=== PATIENT | male | born 1975 | race Caucasian/White ===

== ENCOUNTER → 2017-03-02 16:53 | Emergency (ER) | payer OTHER ==
[~2017-03-02 16:53] MED LIST: Aspirin Low Dose CHEW TAB* 81 MG PO ONE; Ibuprofen TAB* 600 MG PO ONE
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
[2017-03-02 18:11] LABS: Hematocrit 45 % (42-52); Hemoglobin 15.5 g/dl (14.0-18.0); Mean Corpuscular HGB Conc 34 g/dl (31-36); Mean Corpuscular Hemoglobin 33 pg (27-31); Mean Corpuscular Volume 95 fL (80-94); Mean Platelet Volume 8 um3 (7.4-10.4); Red Blood Count 4.77 10^6/ul (4.0-5.4); Red Cell Distribution Width 13 % (10.5-15); White Blood Count 9.6 10^3/ul (3.5-10.8)
[2017-03-02 18:27] LABS: Albumin 3.9 g/dL (3.2-5.2); BUN/Creatinine Ratio 10.9 (8-20); Calcium 9.3 mg/dL (8.6-10.3); EGFR African American 86.2 (>60); Globulin 2.6 g/dL (2-4); Magnesium 2.1 mg/dL (1.9-2.7); Potassium 4.1 mmol/L (3.5-5.0); Total Bilirubin 0.7 mg/dL (0.2-1.0); Total Protein 6.5 g/dL (6.4-8.9)
[2017-03-02 19:01] LABS: TSH (Thyroid Stimulating Horm) 0.66 mcIU/mL (0.34-5.60)
--- NOTE | 2017-03-02 21:49 | ED ---
Frank Fernando Benjamin, scribed for Sampson Helton MD on 03/02/17 at 2129 . HPI Chest Pain - HPI Summary HPI Summary: 41yo male presents to ED c/o left anterior chest pain that started 3-4 days ago. Pain is constant and radiates to the back. Pain is at 5/10, with 7/10 at its worse. Deep breathing, coughing, and pushing the left chest makes the pain worse. Pt also states that he has some mild difficulty breathing. Denies N/V, or abdominal pain. Pt is a smoker. No prior CAD hx. FHx of CAD before 55. - History of Current Complaint Chief Complaint: EDChestPainROMI Time Seen by Provider: 03/02/17 21:21 Hx Obtained From: Patient Onset/Duration: Started Days Ago - 3-4 days, Still Present Timing: Constant Initial Severity: Moderate Current Severity: Moderate Pain Intensity: 6 Pain Scale Used: 0-10 Numeric Chest Pain Location: Left Anterior Chest Pain Radiates: Yes Chest Pain Radiates To:: Back Aggravating Factor(s): Deep Breaths, Other: - coughing, pushing Alleviating Factor(s): Nothing Associated Signs and Symptoms: Positive: Chest Pain, Shortness of Breath, Back Pain. Negative: Nausea, Abdominal Pain, Vomiting - Allergy/Home Medications Allergies/Adverse Reactions: Allergies Allergy/AdvReac Type Severity Reaction Status Date / Time No Known Allergies Allergy Verified 05/29/13 07:59 PMH/Surg Hx/FS Hx/Imm Hx Respiratory History: Reports: Other Respiratory Problems/Disorders - SMOKER Musculoskeletal History: Reports: Hx Arthritis - RIGHT ANKLE, Other Musculoskeletal History - 05/10/2012 FRACTURE THORACIC-HEALING Sensory History: Denies: Hx Contacts or Glasses, Hx Hearing Aid Opthamlomology History: Denies: Hx Contacts or Glasses - Surgical History Surgery Procedure, Year, and Place: RIGHT ANKLE [id number] Hx Anesthesia Reactions: No Infectious Disease History: No Infectious Disease History: Denies: Traveled Outside the [place] in Last 30 Days - Family History Known Family History: Positive: Hypertension - Social History Substance Use Type: Reports: Marijuana Review of Systems Constitutional: Negative Eyes: Negative ENT: Negative Positive: Chest Pain Positive: Shortness Of Breath Gastrointestinal: Negative Genitourinary: Negative Musculoskeletal: Negative Skin: Negative Neurological: Negative Psychological: Normal All Other Systems Reviewed And Are Negative: Yes Physical Exam Triage Information Reviewed: Yes Vital Signs On Initial Exam: Initial Vitals Temp Pulse Resp BP Pulse Ox 98.1 F 67 20 163/92 98 03/02/17 17:23 03/02/17 17:23 03/02/17 17:23 03/02/17 17:23 03/02/17 17:23 Vital Signs Reviewed: Yes Appearance: Positive: Well-Appearing, No Pain Distress, Well-Nourished Skin: Positive: Warm, Skin Color Reflects Adequate Perfusion, Dry Head/Face: Positive: Normal Head/Face Inspection Eyes: Positive: EOMI, PAULY ENT: Positive: Normal ENT inspection Neck: Positive: Supple, Nontender Respiratory/Lung Sounds: Positive: Clear to Auscultation, Breath Sounds Present Cardiovascular: Positive: RRR, Pulses are Symmetrical in both Upper and Lower Extremities, Other - reproducible left sternal chest wall pain Abdomen Description: Positive: Nontender, Soft Bowel Sounds: Positive: Present Musculoskeletal: Positive: Strength/ROM Intact Neurological: Positive: Sensory/Motor Intact, Alert, Oriented to Person Place, Time Psychiatric: Positive: Affect/Mood Appropriate Diagnostics - Vital Signs Vital Signs Temp Pulse Resp BP Pulse Ox 03/02/17 19:20 98.5 F 58 16 159/95 99 03/02/17 17:23 98.1 F 67 20 163/92 98 - Laboratory Lab Results: Lab Results 03/02/17 03/02/17 03/02/17 Range/Units 17:58 17:58 17:58 WBC 9.6 (3.5-10.8) 10^3/ul RBC 4.77 (4.0-5.4) 10^6/ul Hgb 15.5 (14.0-18.0) g/dl Hct 45 (42-52) % MCV 95 H (80-94) fL MCH 33 H (27-31) pg MCHC 34 (31-36) g/dl RDW 13 (10.5-15) % Plt Count 252 (150-450) 10^3/ul MPV 8 (7.4-10.4) um3 Neut % (Auto) 70.0 (38-83) % Lymph % (Auto) 18.0 L (25-47) % Jay % (Auto) 7.2 (1-9) % Eos % (Auto) 3.5 (0-6) % Baso % (Auto) 1.3 (0-2) % Absolute Neuts (auto) 6.7 (1.5-7.7) 10^3/ul Absolute Lymphs (auto) 1.7 (1.0-4.8) 10^3/ul Absolute Monos (auto) 0.7 (0-0.8) 10^3/ul Absolute Eos (auto) 0.3 (0-0.6) 10^3/ul Absolute Basos (auto) 0.1 (0-0.2) 10^3/ul Absolute Nucleated RBC 0.01 10^3/ul Nucleated RBC % 0.1 INR (Anticoag Therapy) (0.89-1.11) D-Dimer, Quantitative (Less Than 230) ng/mL Sodium 141 (133-145) mmol/L Potassium 4.1 (3.5-5.0) mmol/L Chloride 109 (101-111) mmol/L Carbon Dioxide 28 (22-32) mmol/L Anion Gap 4 (2-11) mmol/L BUN 13 (6-24) mg/dL Creatinine 1.19 H (0.67-1.17) mg/dL Est GFR ( Amer) 86.2 (>60) Est GFR (Non-Af Amer) 67.0 (>60) BUN/Creatinine Ratio 10.9 (8-20) Glucose 95 (70-100) mg/dL Lactic Acid (0.5-2.0) mmol/L Calcium 9.3 (8.6-10.3) mg/dL Magnesium 2.1 (1.9-2.7) mg/dL Total Bilirubin 0.70 (0.2-1.0) mg/dL AST 12 L (13-39) U/L ALT 17 (7-52) U/L Alkaline Phosphatase 73 (34-104) U/L Total Creatine Kinase 106 (10-223) U/L CK-MB (CK-2) 0.7 (0.6-6.3) ng/mL Myoglobin 17.8 (17.4-105.7) ng/mL Troponin I 0.00 (<0.04) ng/mL B-Natriuretic Peptide 37 ( - 100) pg/mL Total Protein 6.5 (6.4-8.9) g/dL Albumin 3.9 (3.2-5.2) g/dL Globulin 2.6 (2-4) g/dL Albumin/Globulin Ratio 1.5 (1-3) TSH 0.66 (0.34-5.60) mcIU/mL 03/02/17 03/02/17 Range/Units 17:58 17:58 WBC (3.5-10.8) 10^3/ul RBC (4.0-5.4) 10^6/ul Hgb (14.0-18.0) g/dl Hct (42-52) % MCV (80-94) fL MCH (27-31) pg MCHC (31-36) g/dl RDW (10.5-15) % Plt Count (150-450) 10^3/ul MPV (7.4-10.4) um3 Neut % (Auto) (38-83) % Lymph % (Auto) (25-47) % Jay % (Auto) (1-9) % Eos % (Auto) (0-6) % Baso % (Auto) (0-2) % Absolute Neuts (auto) (1.5-7.7) 10^3/ul Absolute Lymphs (auto) (1.0-4.8) 10^3/ul Absolute Monos (auto) (0-0.8) 10^3/ul Absolute Eos (auto) (0-0.6) 10^3/ul Absolute Basos (auto) (0-0.2) 10^3/ul Absolute Nucleated RBC 10^3/ul Nucleated RBC % INR (Anticoag Therapy) 0.90 (0.89-1.11) D-Dimer, Quantitative < 200 (Less Than 230) ng/mL Sodium (133-145) mmol/L Potassium (3.5-5.0) mmol/L Chloride (101-111) mmol/L Carbon Dioxide (22-32) mmol/L Anion Gap (2-11) mmol/L BUN (6-24) mg/dL Creatinine (0.67-1.17) mg/dL Est GFR ( Amer) (>60) Est GFR (Non-Af Amer) (>60) BUN/Creatinine Ratio (8-20) Glucose (70-100) mg/dL Lactic Acid 1.0 (0.5-2.0) mmol/L Calcium (8.6-10.3) mg/dL Magnesium (1.9-2.7) mg/dL Total Bilirubin (0.2-1.0) mg/dL AST (13-39) U/L ALT (7-52) U/L Alkaline Phosphatase (34-104) U/L Total Creatine Kinase (10-223) U/L CK-MB (CK-2) (0.6-6.3) ng/mL Myoglobin (17.4-105.7) ng/mL Troponin I (<0.04) ng/mL B-Natriuretic Peptide ( - 100) pg/mL Total Protein (6.4-8.9) g/dL Albumin (3.2-5.2) g/dL Globulin (2-4) g/dL Albumin/Globulin Ratio (1-3) TSH (0.34-5.60) mcIU/mL Result Diagrams: 03/02/17 17:58 03/02/17 17:58 Lab Statement: Any lab studies that have been ordered have been reviewed, and results considered in the medical decision making process. - Radiology CXR Xray Interpretation: No Acute Changes Radiology Interpretation Completed By: ED Physician - ED physician has reviewed this radiology report and agrees. - EKG 1729 Cardiac Rate: NL - 70bpm EKG Rhythm: Sinus Rhythm ST Segment: Normal Ectopy: None Re-Evaluation - Re-Evaluation First Eval Re-Evaluation Time: 21:36 Comment: Reviewed labs and imaging results. Chest Pain Course/Dx - Course Course Of Treatment: Reviewed pts medication and allergy lists. High blood pressure noted. DISCUSSED RESULTS WITH PATIENT/FRIENDS. PAIN IS REPRODUCIBLE TO PALPATION. 4-5 DAYS OF PAIN; TROP AND DDIMER, CXR NL. DISCUSSED ADMISSION VERSES F/U WITH PMD. AT THIS TIME, PT WILL F/U WITH PMD, TAKE IBUPROFEN PRN; RETURN IF WORSE. - Diagnoses Provider Diagnoses: Chest pain Discharge - Discharge Plan Condition: Stable Disposition: HOME Patient Education Materials: Chest Pain (ED) Referrals: Kierra Demarco MD [Primary Care Provider] - Additional Instructions: FOLLOW UP WITH YOUR DOCTOR. CALL TOMORROW, 03/03/17, FOR AN APPOINTMENT. TAKE IBUPROFEN 600MG EVERY 6 HOURS NEEDED. RETURN TO THE EMERGENCY DEPARTMENT FOR ANY WORSENING OF YOUR CONDITION; PAIN, SHORTNESS OF BREATH, YOU FEEL ILL, YOU FEEL LIKE YOU ARE GOING TO PASS OUT OR QUESTIONS OR CONCERNS. The documentation as recorded by the Frank means Benjamin accurately reflects the service I personally performed and the decisions made by me, Sampson Helton MD.
[2017-03-02 22:30] VITALS: BP 156/100
== END | disposition home or self-care (01) ==
LOC: ED 16:53
DX: R07.9 Chest pain, unspecified (principal); R06.02 Shortness of breath; M54.9 Dorsalgia, unspecified; F17.210 Nicotine dependence, cigarettes, uncomplicated
CPT/HCPCS: 36415; 71010; 80053; 82550; 82553; 83605; 83735; 83874; 83880; 84443; 84484; 85025; 85379; 85610; 93005; 99283; A9270-GY

== ENCOUNTER 2018-01-01 10:46 | Emergency (ER) | payer SELFPAY ==
[2018-01-01] MEDS ORDERED: Ketorolac INJ* 30 MG/ML 1 ML VIAL IM ONE (14:04)
[2018-01-01] MEDS ORDERED: LORazepam TAB(*) 1 MG PO ONE (14:04)
--- NOTE | 2018-01-01 14:15 | ED ---
Abdominal Pain/Male - HPI Summary HPI Summary: This is scribe Memo Gurpreet documenting for attending Florencio Lloyd MD. A 42 y/o male presents to ED c/o right back pain reaching 8/10 in severity. As per triage, "Pt c/o R back pain from shoulder radiating to buttock for approx 1 week". According to the patient, this morning it was difficult to walk because of the severe sharp back pain he experienced after coughing. He noted that this pain has been present for the past week coupled with the cough, however, he comes to the [facility] ED today because the pain has worsened to the point where he cannot ambulate. He stated that he can barely move as it hurts to move and even talk. Pt denies any leg pain and nausea, however, he does have wheezing. He noted that he feels like his lungs are filling up (difficulty breathing, SOB) and he is wheezing (normally only during sleep). He initially thought the pain was a pulled muscle and he had his girlfriend rub it out, but since it has been getting worse. The patient attempted to sit up for the MD, but could not due to the severe pain. PMHx of broken back (long time ago). No major surgeries. Patient took no pain medications today or yesterday, but he took 10 mg of Oxycodone ("pink pill") the day before, but it did not alleviate symptoms. I, Dr. Florencio Lloyd, personally performed the services described in this documentation as scribed in my presence and it is both accurate and complete. - History of Current Complaint Chief Complaint: EDFlankPain Stated Complaint: FLANK/BACK PAIN Time Seen by Provider: 01/01/18 13:41 Hx Obtained From: Patient Onset/Duration: Sudden Onset, Lasting Weeks - 1 week., Still Present, Worse Since Timing: Constant Severity Initially: Severe Severity Currently: Severe Pain Intensity: 8 Pain Scale Used: 0-10 Numeric Location: Other - Right back. Radiates: Yes Radiates to: Back, Other - Buttock and shoulder (as per triage). Character: Sharp Aggravating Factor(s): Other: - Cough Alleviating Factor(s): Nothing Associated Signs And Symptoms: Positive: Cough, Back Pain. Negative: Nausea - Allergies/Home Medications Allergies/Adverse Reactions: Allergies Allergy/AdvReac Type Severity Reaction Status Date / Time No Known Allergies Allergy Verified 01/01/18 11:05 PMH/Surg Hx/FS Hx/Imm Hx Respiratory History: Reports: Other Respiratory Problems/Disorders - SMOKER Musculoskeletal History: Reports: Hx Arthritis - RIGHT ANKLE, Other Musculoskeletal History - 05/10/2012 FRACTURE THORACIC-HEALING Sensory History: Denies: Hx Contacts or Glasses, Hx Hearing Aid Opthamlomology History: Denies: Hx Contacts or Glasses - Surgical History Surgery Procedure, Year, and Place: RIGHT ANKLE [id number]/13 Hx Anesthesia Reactions: No Infectious Disease History: No Infectious Disease History: Denies: Traveled Outside the [place] in Last 30 Days - Family History Known Family History: Positive: Hypertension - Social History Alcohol Use: Occasionally Substance Use Type: Reports: Marijuana Smoking Status (MU): Heavy Every Day Tobacco Smoker Review of Systems Negative: Fever Positive: Shortness Of Breath, Cough Negative: Nausea Positive: Other - POSITIVE: Right back pain; NEGATIVE: Leg pain All Other Systems Reviewed And Are Negative: Yes Physical Exam - Summary Physical Exam Summary: Appearance: The patient is well-nourished in no acute distress and in no acute pain. Skin: The skin is warm and dry and skin color reflects adequate perfusion. HEENT: The head is normocephalic and atraumatic. The pupils are equal and reactive. The conjunctivae are clear and without drainage. Nares are patent and without drainage. Mouth reveals moist mucous membranes and the throat is without erythema and exudate. The external ears are intact. The ear canals are patent and without drainage. The tympanic membranes are intact. Neck: The neck is supple with full range of motion and non-tender. There are no carotid bruits. There is no neck vein distension. Respiratory: Chest is non-tender. Lungs are clear to auscultation and breath sounds are symmetrical and equal. Cardiovascular: Heart is regular rate and rhythm. There is no murmur or rub auscultated. There is no peripheral edema and pulses are symmetrical and equal. Abdomen: The abdomen is soft and non-tender. There are normal bowel sounds heard in all four quadrants and there is no organomegaly palpated. Musculoskeletal: There is good capillary refill. There is no peripheral edema or calf tenderness elicited. Tenderness in the paralumbar area. Neurological: Patient is alert and oriented to person, place and time. The patient has symmetrical motor strength in all four extremities. Cranial nerves are grossly intact. Deep tendon reflexes are symmetrical and equal in all four extremities. Psychiatric: The patient has an appropriate affect and does not exhibit any anxiety or depression. Triage Information Reviewed: Yes Vital Signs On Initial Exam: Initial Vitals Temp Pulse Resp BP Pulse Ox 98.5 F 61 14 154/93 100 01/01/18 11:02 01/01/18 11:02 01/01/18 11:02 01/01/18 11:02 01/01/18 11:02 Vital Signs Reviewed: Yes Diagnostics - Vital Signs Vital Signs Temp Pulse Resp BP Pulse Ox 01/01/18 12:40 97.7 F 51 16 158/89 98 01/01/18 11:02 98.5 F 61 14 154/93 100 - Laboratory Lab Statement: Any lab studies that have been ordered have been reviewed, and results considered in the medical decision making process. - Radiology CXR Radiology Interpretation Completed By: Radiologist - NO EVIDENCE FOR ACTIVE CARDIOPULMONARY DISEASE. ED physician reviewed this radiology report. Re-Evaluation - Re-Evaluation First Eval Re-Evaluation Time: 17:26 Change: Improved Comment: Patient is feeling slightly better. Abdominal Pain Fem Course/Dx - Course Course Of Treatment: This seems like a musculoskeletal pain to me and possibly radicular pain. I recommended a short course of pain medication and follow-up if not resolving. He did improve here with Ativan as a muscle relaxer and ketorolac as anti-inflammatory. - Diagnoses Provider Diagnoses: Muscle strain Discharge - Sign-Out/Discharge Documenting (check all that apply): Patient Departure - DISCHARGE - Discharge Plan Condition: Stable Disposition: HOME Prescriptions: oxyCODONE/Acetamin 5/325 MG* [Percocet 5/325 TAB*] 1 tab PO Q6H PRN #20 tab MDD 4 PRN Reason: Pain Patient Education Materials: Muscle Strain (ED), Back Pain (ED) Referrals: Kierra Demarco MD [Primary Care Provider] - 3 Days Additional Instructions: FOLLOW UP WITH PRIMARY CARE PHYSICIAN IN 2-3 DAYS. RETURN TO ED FOR ANY NEW OR WORSENING SYMPTOMS. - Billing Disposition and Condition Condition: STABLE Disposition: Home
--- NOTE | 2018-01-01 15:32 | RAD ---
INDICATION: Chest pain. COMPARISON: Comparison is made with a prior chest x-ray study from March 02, 2017. TECHNIQUE: Dual-energy PA and lateral views of the chest were obtained. FINDINGS: The heart is within normal limits in size. Mediastinal and hilar contours appear within normal limits. The lungs are underinflated and clear. No pleural effusion or pneumothorax is seen. There are compression fractures of the T12 and L1 vertebral bodies which appear unchanged from a prior CT study of the lumbar spine from May 04, 2013. IMPRESSION: NO EVIDENCE FOR ACTIVE CARDIOPULMONARY DISEASE.
[2018-01-01 17:35] VITALS: BP 145/92
== END 2018-01-01 17:36 | disposition home or self-care (01) ==
LOC: ED 10:46
DX: T14.8XXA Other injury of unspecified body region, initial encounter (principal); R07.9 Chest pain, unspecified; Z72.0 Tobacco use; X58.XXXA Exposure to other specified factors, initial encounter; Y92.9 Unspecified place or not applicable
CPT/HCPCS: 71046; 96372; 99282; A9270-GY; J1885

== ENCOUNTER 2018-01-01 22:43 | Emergency (ER) | payer SELFPAY ==
[2018-01-01] MEDS ORDERED: oxyCODONE TAB* 5 MG TAB PO ONE (23:20)
--- NOTE | 2018-01-01 23:26 | ED ---
Abdominal Pain/Male - HPI Summary HPI Summary: The patient is a 42 y/o M presenting to [facility] c/o sudden onset right-sided flank and mid back pain starting a week ago, worsening this morning. The pain had started near his right buttocks, but has since moved into the flank area and back. He has been coughing throughout the week but had a particularly notable cough today in which he had heard a popping noise that worsened his pain. The pain is aggravated by bending over but not my lifting his legs. The pain is rated 10/10 in severity. He additionally c/o chills and SOB. He denies urinary symptoms. He states that he had broken his back in the past, and this is a new pain. - History of Current Complaint Chief Complaint: EDFlankPain Stated Complaint: SOB/RT FLANK PAIN Time Seen by Provider: 01/01/18 23:14 Hx Obtained From: Patient Onset/Duration: Sudden Onset, Lasting Days, Still Present Timing: Constant, Lasting Days Severity Initially: Moderate Severity Currently: Severe Pain Intensity: 10 Pain Scale Used: 0-10 Numeric Location: Flank - right Radiates: Yes Radiates to: Back - right Aggravating Factor(s): Other: - coughing, bending over Alleviating Factor(s): Nothing Associated Signs And Symptoms: Positive: Cough, Back Pain, Other - chills, SOB - Allergies/Home Medications Allergies/Adverse Reactions: Allergies Allergy/AdvReac Type Severity Reaction Status Date / Time No Known Allergies Allergy Verified 01/01/18 22:50 PMH/Surg Hx/FS Hx/Imm Hx Respiratory History: Reports: Other Respiratory Problems/Disorders - SMOKER Musculoskeletal History: Reports: Hx Arthritis - RIGHT ANKLE, Other Musculoskeletal History - 05/10/2012 FRACTURE THORACIC-HEALING Sensory History: Denies: Hx Contacts or Glasses, Hx Hearing Aid Opthamlomology History: Denies: Hx Contacts or Glasses - Surgical History Surgery Procedure, Year, and Place: RIGHT ANKLE [id number]/13 Hx Anesthesia Reactions: No Infectious Disease History: No Infectious Disease History: Denies: Traveled Outside the [place] in Last 30 Days - Family History Known Family History: Positive: Hypertension - Social History Alcohol Use: Occasionally Substance Use Type: Reports: Marijuana Smoking Status (MU): Heavy Every Day Tobacco Smoker Review of Systems Positive: Chills Positive: Shortness Of Breath, Cough Positive: Abdominal Pain - right-sided flank pain Positive: no symptoms reported Positive: Other - mid-back pain All Other Systems Reviewed And Are Negative: Yes Physical Exam - Summary Physical Exam Summary: Appearance: Well-appearing, Well-nourished, lying in bed comfortably Skin: Warm, dry, no obvious rash Eyes: sclera anicteric, no conjunctival pallor ENT: mucous membranes moist, pharynx appears normal Neck: Supple, nontender Respiratory: Clear to auscultation, no signs of respiratory distress Cardiovascular: Normal S1, S2. No murmurs. Normal distal pulses in tibial and radial bilaterally. Abdomen: Soft, nontender, normal active bowel sounds present Musculoskeletal: Strength/ROM Intact, localized tenderness in the right mid- lumbar area Neurological: A&Ox3, awake and alert, mentation is normal, speech is fluent and appropriate Psychiatric: affect is normal, does not appear anxious or depressed Triage Information Reviewed: Yes Vital Signs On Initial Exam: Initial Vitals Temp Pulse Resp BP Pulse Ox 99.4 F 91 20 174/129 91 01/01/18 22:46 01/01/18 22:46 01/01/18 22:46 01/01/18 22:46 01/01/18 22:46 Vital Signs Reviewed: Yes Diagnostics - Vital Signs Vital Signs Temp Pulse Resp BP Pulse Ox 01/01/18 22:46 99.4 F 91 20 174/129 91 - Laboratory Lab Statement: Any lab studies that have been ordered have been reviewed, and results considered in the medical decision making process. - CT Abd/Pel CT CT Interpretation: Positive (See Comments) - 1. Multifocal endobronchial pneumonia possibly associated with aspiration. 2. Additional incidental findings as described - Punctuate nonobstructive calculus left lower renal pole. The aorta demonstrates mild atherosclerosis calcification. ED physician has reviewed this report. CT Interpretation Completed By: Radiologist Discharge - Discharge Plan Condition: Good Disposition: HOME Prescriptions: DOXYcycline CAP(*) [DOXYcycline 100MG CAP(*)] 100 mg PO BID #28 cap Indomethacin CAP* [Indocin CAP*] 25 mg PO TID PRN #20 cap PRN Reason: Pain Patient Education Materials: Pneumonia (ED) Referrals: Kierra Demarco MD [Primary Care Provider] - - Billing Disposition and Condition Condition: GOOD Disposition: Home Attestations Scribe Attestation: This is scrmarleen lorenzo for attending Dr. Florencio Olivo MD. User Type: Provider with Scribe Provider Attestation: The documentation recorded by the scribe accurately reflects the service IDr. Olivo, personally performed and the decisions made by me.
[2018-01-02] MEDS ORDERED: Indomethacin CAP* 25 MG CAP PO ONE (00:28)
[2018-01-02] MEDS ORDERED: DOXYcycline CAP(*) 100 MG PO ONE (00:28)
[2018-01-02 02:17] VITALS: BP 174/96
--- NOTE | 2018-01-02 08:00 | RAD ---
INDICATION: Right flank pain. COMPARISON: Comparison is made with a prior CT of the abdomen and pelvis from February 06, 2012 and a prior chest x-ray study from January 01, 2018. TECHNIQUE: A CT scan of the abdomen and pelvis was performed without intravenous and without oral contrast. Contiguous axial sections were obtained from the lung bases through the symphysis pubis. Images were reconstructed in the coronal and sagittal planes. FINDINGS: There is a right lower lobe infiltrate with adjacent involvement of the right middle lobe most consistent with pneumonia. No pleural effusion is seen. The liver and spleen are within normal limits in size without significant focal abnormality on this noncontrast study. No calcified gallstones are seen. The pancreas appears to be within normal limits in size. The adrenal glands and kidneys are normal in size. There is a small 2 mm nonobstructing calculus in the lower pole of the left kidney. No hydronephrosis is seen. There is mild diffuse thickening of the wall of the urinary bladder possibly due to incomplete distention. The aorta is normal in caliber with mild calcific plaque present. No significant enlarged retroperitoneal lymph nodes are seen. The stomach, small and large bowel appear nondistended. The appendix is within normal limits. There is a moderate amount of retained stool. There is a focal area of mild wall thickening in the mid transverse colon. There is a periumbilical hernia containing fat. No free intraperitoneal air or fluid is seen. There are chronic moderate compression fractures of the superior endplates of the T12 and L1 vertebral bodies. The results of this exam were discussed with Dr. Pham. IMPRESSION: 1. RIGHT LOWER AND MIDDLE LOBE INFILTRATES. 2. THERE IS A SMALL FOCAL AREA OF WALL THICKENING IN THE MID TRANSVERSE COLON. RECOMMEND A COLONOSCOPY TO EXCLUDE A MASS. 3. SMALL NONOBSTRUCTING LEFT RENAL CALCULUS. 4. CHRONIC COMPRESSION FRACTURES OF THE T12 AND L1 VERTEBRAL BODIES.
--- NOTE | 2018-01-02 08:31 | ED ---
Progress - Progress Note Progress Note: md IRVIN 01/02/[address] Huston that pt has thickening, focal, in mid transverse colon. Diff dx includes colon cancer. Pt needs notification and definite follow up to get colonoscopy. Called [phone] and left message for pt to call. B MD Irvin. Discharge - Sign-Out/Discharge Documenting (check all that apply): Post-Discharge Follow Up - needs colonoscopy in follow up, based on CT findings - Discharge Plan Condition: Good Disposition: HOME Prescriptions: DOXYcycline CAP(*) [DOXYcycline 100MG CAP(*)] 100 mg PO BID #28 cap Indomethacin CAP* [Indocin CAP*] 25 mg PO TID PRN #20 cap PRN Reason: Pain Patient Education Materials: Pneumonia (ED) Referrals: Kierra Demarco MD [Primary Care Provider] - - Billing Disposition and Condition Condition: GOOD Disposition: Home
== END 2018-01-02 02:16 | disposition home or self-care (01) ==
LOC: ED 22:43
DX: R05 Cough (principal); M54.9 Dorsalgia, unspecified; R06.02 Shortness of breath; R10.84 Generalized abdominal pain; F17.210 Nicotine dependence, cigarettes, uncomplicated
CPT/HCPCS: 74176; 99283; A9270-GY